=== PATIENT | female | born 2000 | race Caucasian/White ===

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

== ENCOUNTER 2018-03-19 18:04 | Emergency (ER) | payer OTHER, SELFPAY ==
[2018-03-19 18:25] VITALS: BP 98/61; PULSE 76; RESP 16; TEMP 36.8; O2SAT 100; BMI 22.4
--- NOTE | 2018-03-19 18:42 | DI.US.S_ITS ---
PROCEDURE: US OB <= 14 WEEKS FETUS INDICATIONS: First trimester bleeding OUTSIDE/PRIOR DATING DATA: Last menstrual period (LMP): 01/31/18. LMP-based estimated date of delivery (MAR): 11/07/18. First dating scan (date and location): This study, 03/19/18. Estimated date of delivery (MAR) from first dating scan: 11/13/18+ or -5 days. TECHNIQUE: Real-time scanning was performed of the fetus and maternal pelvic organs, with image documentation. Endovaginal scanning was also performed to better visualize the fetus and maternal ovaries. COMPARISON: None. FINDINGS: Embryo: Early IUP is present, heart rate 106 beats per minute, crown-rump length 3 mm, which correlates with a gestational age of 5 weeks 6 days, plus or -5 days. Measurement variability in dating: +/- 4 weeks by LMP, +/- 7 days by mean sac diameter (use before 6 weeks gestation if crown-rump length not able to be measured), +/- 5 days by crown-rump length (up to 8 weeks 6 days gestation), +/- 7 days by crown-rump length (up to 13 weeks 6 days gestation). Maternal organs: Ovaries normal considering gestational status. Limited images through the kidneys demonstrate no hydronephrosis. IMPRESSION: Single living intrauterine gestation, with crown-rump length of 3 mm correlating with a gestational age of 5 weeks 6 days and delivery date would be projected to be centered on 11/13/18, plus or -5 days. Followup anatomic survey at 21 weeks gestation is recommended. Dictated by: Anselmo Kathleen M.D. on 03/19/2018 at 19:59 Approved by: Anselmo Kathleen M.D. on 03/19/2018 at 20:01
--- NOTE | 2018-03-19 19:02 | ED.PREGNANCY ---
HPI - <REGGIE Thomas - Last Filed: 03/19/18 22:02> General Chief complaint: Vaginal Bleeding Stated complaint: 6 AND HALF WEEKS SPOTTING Time Seen by Provider: 03/19/18 18:42 Source: patient Mode of arrival: ambulatory Limitations: no limitations History of Present Illness HPI Narrative: 17-year-old female who is approximately 6 weeks here for complaint of vaginal spotting over the past couple of days. She denies any cramping. She denies any abdominal trauma. No abnormal vaginal discharge. She denies any urinary symptoms. No abdominal pain. She is 1. She does not know her blood type. She denies any for flank pain. No other concerns or complaints at this time MD Complaint: vaginal bleeding Date of Last Menstrual Period: 01/31/18 Patient : Yes Related Data Home Medications Medication Instructions Recorded Confirmed [humira] #0 04/07/17 Previous Rx's Medication Instructions Recorded pantoprazole [Protonix] 40 mg PO QDAY #30 tab 04/22/17 ferrous sulfate [Iron (ferrous 325 mg PO BID #60 tab 06/21/17 sulfate)] ferrous sulfate [Iron (ferrous 325 mg PO QDAY #30 tab 06/21/17 sulfate)] levofloxacin [Levaquin] 750 mg PO QDAY #7 tab 06/21/17 levofloxacin [Levaquin] 750 mg PO QDAY #7 tab 06/21/17 Allergies Allergy/AdvReac Type Severity Reaction Status Date / Time ibuprofen [IBUPROFEN] Allergy Unknown Gastrointestinal Verified 03/19/18 18:29 Upset Review of Systems <REGGIE Thomas - Last Filed: 03/19/18 22:02> Constitutional Denies chills, Denies fever(s), Denies lethargy and Denies weakness Eyes Denies change in vision, Denies eye discharge, Denies irritation and Denies loss of vision ENT Ears, Nose, Mouth, and Throat: Denies change in voice, Denies neck pain and Denies sore throat Cardiovascular Denies chest pain, Denies irregular heart rhythm, Denies lightheadedness, Denies palpitations, Denies dyspnea, Denies dyspnea on exertion and Denies orthopnea Respiratory Denies cough, Denies dyspnea, Denies dyspnea on exertion and Denies wheezing Gastrointestinal Gastrointestinal: Denies abdominal pain, Denies change in bowel habits, Denies diarrhea, Denies nausea and Denies vomiting Genitourinary Comments: Vaginal spotting Musculoskeletal Denies neck pain Integumentary/Breasts Denies pruritus, Denies erythema, Denies rash and Denies wounds Neurologic Denies confusion, Denies loss of vision and Denies weakness Psychiatric Denies anxiety, Denies confusion, Denies depression, Denies homicidal ideation and Denies suicidal ideation Endocrine Denies palpitations Hematologic/Lymphatic Denies easy bruising Allergic/Immunologic Denies wheezing PMFSH - <REGGIE Thomas - Last Filed: 03/19/18 22:02> Past Medical History Medical history: Reports no medical history Surgical history: Reports no surgical history FOREST ECONOMIST history: Reports No FOREST ECONOMIST History Date of Last Menstrual Period: 01/31/18 Patient : Yes Exam <REGGIE Thomas - Last Filed: 03/19/18 22:02> Initial Vital Signs Initial Vital Signs: Vital Signs Temperature 98.3 F 03/19/18 18:25 Pulse Rate 76 03/19/18 18:25 Respiratory Rate 16 03/19/18 18:25 Blood Pressure 98/61 03/19/18 18:25 Pulse Oximetry 100 03/19/18 18:25 Const General: cooperative and well developed Nutritional Appearance: well nourished Orientation: alert, awake, oriented x3 and not confused HENAR Mouth: oral mucosae normal, oropharynx normal and moist mucous membranes Eyes Conjunctivae: conjunctivae normal Sclera: sclerae normal Pupils: PERRL EOM: EOM intact bilaterally Resp Effort & Inspection: normal respiratory effort, able to speak in complete sentences, no respiratory distress and no use of accessory muscles Auscultation: clear to auscultation bilaterally, no rales, no rhonchi and no wheezes Cardio Rate: regular rate Rhythm: regular rhythm Heart Sounds: no click, no gallops, no murmurs and no rubs Pulses: normal peripheral pulses GI Inspection: non-distended Palpation: soft, no hepatosplenomegaly, No guarding, No pulsatile mass and No tender Auscultation: normal bowel sounds General: No CVA tenderness Skin General: no rashes or lesions noted, No jaundice and No petechiae Neuro General: alert, oriented x3, gait normal and no focal motor deficits Speech: speech normal <Iasías Bedoya DO - Last Filed: 03/20/18 03:50> Initial Vital Signs Initial Vital Signs: Vital Signs Temperature 98.3 F 03/19/18 18:25 Pulse Rate 76 03/19/18 18:25 Respiratory Rate 16 03/19/18 18:25 Blood Pressure 98/61 03/19/18 18:25 Pulse Oximetry 100 03/19/18 18:25 Course <REGGIE Thomas - Last Filed: 03/19/18 22:02> Orders Ordered: ED Orders 03/19/18 19:55 ABO RH Type Stat Complete Blood Count AUTO DIFF Stat Comprehensive Metabolic Panel Stat HCG Quantitative Stat Discontinued Medications Ondansetron HCl (Zofran Odt) 4 mg PO NOW ONE Stop: 03/19/18 19:49 Vital Signs - 8 hr 03/19/18 21:37 Pulse Rate 61 Respiratory Rate 16 Blood Pressure [Right Arm] 97/62 Pulse Oximetry 100 <Isaías Bedoya DO - Last Filed: 03/20/18 03:50> Orders Ordered: ED Orders 03/19/18 19:55 ABO RH Type Stat Complete Blood Count AUTO DIFF Stat Comprehensive Metabolic Panel Stat HCG Quantitative Stat Discontinued Medications Ondansetron HCl (Zofran Odt) 4 mg PO NOW ONE Stop: 03/19/18 19:49 Vital Signs - 8 hr 03/19/18 21:37 Pulse Rate 61 Respiratory Rate 16 Blood Pressure [Right Arm] 97/62 Pulse Oximetry 100 MDM - OB/Uterine Contractions <REGGIE Thomas - Last Filed: 03/19/18 22:02> Lab Data Result diagrams: 03/19/18 19:55 03/19/18 19:55 Lab Results 03/19/18 03/19/18 03/19/18 Range/Units 19:55 19:55 19:55 WBC 10.7 (4.5-11.0) X10^3/uL RBC 4.31 (4.0-5.2) X10^6/uL Hgb 10.8 L (12.0-16.0) g/dL Hct 33.3 L (36-46) % MCV 77.3 L (80-100) fL MCH 25.0 L (26-34) PG MCHC 32.3 (30-36) % RDW 16.1 H (11.6-14.8) % Plt Count 448 H (150-400) X10^3/uL Neut % (Auto) 61.8 (50-75) % Lymph % (Auto) 22.7 L (25-40) % [place] % (Auto) 8.2 (3-14) % Eos % (Auto) 6.5 H (2-4) % Baso % (Auto) 0.8 (0-2) % Neut # (Auto) 6600 H (4510-1712) /uL Sodium 138 (137-145) mmol/L Potassium 3.7 (3.4-5.1) mmol/L Chloride 104 (98-107) mmol/L Carbon Dioxide 26 (22-32) mmol/L BUN 10 (7-17) mg/dL Creatinine 0.60 (0.52-1.04) mg/dL Estimated GFR > 60.0 (>60) mL/min BUN/Creatinine Ratio 16.7 (6-22) Glucose 103 H (70-100) mg/dL Calcium 8.9 (8.4-10.2) mg/dL Total Bilirubin 0.2 (0.2-1.3) mg/dL AST 15 (14-36) IU/L ALT 17 (9-52) IU/L Alkaline Phosphatase 52 (38-126) U/L Total Protein 6.9 (6.3-8.2) g/dL Albumin 4.0 (3.5-5.0) g/dL Globulin 2.9 (1.7-4.1) g/dL Albumin/Globulin Ratio 1.4 (1.0-2.8) HCG, Quant 01041 mIU/mL Blood Type B Positive Imaging Data ob us: Radiologist's impression: PROCEDURE: US OB <= 14 WEEKS FETUS INDICATIONS: First trimester bleeding OUTSIDE/PRIOR DATING DATA: Last menstrual period (LMP): 01/31/18. LMP-based estimated date of delivery (MAR): 11/07/18. First dating scan (date and location): This study, 03/19/18. Estimated date of delivery (MAR) from first dating scan: 11/13/18+ or -5 days. TECHNIQUE: Real-time scanning was performed of the fetus and maternal pelvic organs, with image documentation. Endovaginal scanning was also performed to better visualize the fetus and maternal ovaries. COMPARISON: None. FINDINGS: Embryo: Early IUP is present, heart rate 106 beats per minute, crown-rump length 3 mm, which correlates with a gestational age of 5 weeks 6 days, plus or -5 days. Measurement variability in dating: +/- 4 weeks by LMP, +/- 7 days by mean sac diameter (use before 6 weeks gestation if crown-rump length not able to be measured), +/- 5 days by crown-rump length (up to 8 weeks 6 days gestation), +/- 7 days by crown-rump length (up to 13 weeks 6 days gestation). Maternal organs: Ovaries normal considering gestational status. Limited images through the kidneys demonstrate no hydronephrosis. IMPRESSION: Single living intrauterine gestation, with crown-rump length of 3 mm correlating with a gestational age of 5 weeks 6 days and delivery date would be projected to be centered on 11/13/18, plus or -5 days. Followup anatomic survey at 21 weeks gestation is recommended. Dictated by: Anselmo Kathleen M.D. on 03/19/2018 at 19:59 Approved by: Anselmo Kathleen M.D. on 03/19/2018 at 20:01 MDM Narrative Medical decision making narrative: Ob ultrasound was obtained and shows a intrauterine with viable heart rate at 5 weeks 6 days of age. No abnormal findings of the are seen. CBC was obtained and shows slight anemia however is consistent with her prior lab values. Chem panel was obtained was unremarkable. Urinalysis was negative for urinary tract infection. HCG quant was obtained and shows that she is at 50 K. her blood type is B positive. She is referred to OB for further evaluation. Follow up towards the end of the week for further evaluation. [id number] Tylenol as needed for any discomfort. For any worsening symptoms return to the emergency room. <Isaías Bedoya DO - Last Filed: 03/20/18 03:50> Lab Data Lab Results 03/19/18 03/19/18 03/19/18 Range/Units 19:55 19:55 19:55 WBC 10.7 (4.5-11.0) X10^3/uL RBC 4.31 (4.0-5.2) X10^6/uL Hgb 10.8 L (12.0-16.0) g/dL Hct 33.3 L (36-46) % MCV 77.3 L (80-100) fL MCH 25.0 L (26-34) PG MCHC 32.3 (30-36) % RDW 16.1 H (11.6-14.8) % Plt Count 448 H (150-400) X10^3/uL Neut % (Auto) 61.8 (50-75) % Lymph % (Auto) 22.7 L (25-40) % [place] % (Auto) 8.2 (3-14) % Eos % (Auto) 6.5 H (2-4) % Baso % (Auto) 0.8 (0-2) % Neut # (Auto) 6600 H (7564-0963) /uL Sodium 138 (137-145) mmol/L Potassium 3.7 (3.4-5.1) mmol/L Chloride 104 (98-107) mmol/L Carbon Dioxide 26 (22-32) mmol/L BUN 10 (7-17) mg/dL Creatinine 0.60 (0.52-1.04) mg/dL Estimated GFR > 60.0 (>60) mL/min BUN/Creatinine Ratio 16.7 (6-22) Glucose 103 H (70-100) mg/dL Calcium 8.9 (8.4-10.2) mg/dL Total Bilirubin 0.2 (0.2-1.3) mg/dL AST 15 (14-36) IU/L ALT 17 (9-52) IU/L Alkaline Phosphatase 52 (38-126) U/L Total Protein 6.9 (6.3-8.2) g/dL Albumin 4.0 (3.5-5.0) g/dL Globulin 2.9 (1.7-4.1) g/dL Albumin/Globulin Ratio 1.4 (1.0-2.8) HCG, Quant 39530 mIU/mL Blood Type B Positive Discharge Plan Departure Patient Disposition: Home Clinical Impression: Vaginal bleeding before 22 weeks gestation Discharge Date/Time: 03/19/18 21:42 Interventions: ED Discharge Assessment Last Done: 03/19/18 21:42 Instructions: DI for Vaginal Bleeding During Activity Restrictions/Additional Instructions: Ultrasound shows approximately 5 weeks and 6 days intrauterine with healthy heart rate. Laboratory results were normal. Follow up with OB later this week for re-evaluation. Use Tylenol as needed for any discomfort. For any worsening symptoms return to the emergency room. Call number at Ob below to schedule follow-up appointment Prescriptions: No Action [humira] Qty: 0 RF: 0 pantoprazole [Protonix] 40 MG tablet,delayed release (DR/EC) 40 mg PO QDAY Qty: 30 RF: 0 levofloxacin [Levaquin] 750 MG tablet 750 mg PO QDAY Qty: 7 RF: 0 ferrous sulfate [Iron (ferrous sulfate)] 325 MG tablet 325 mg PO BID Qty: 60 RF: 0 ferrous sulfate [Iron (ferrous sulfate)] 325 MG tablet 325 mg PO QDAY Qty: 30 RF: 0 levofloxacin [Levaquin] 750 MG tablet 750 mg PO QDAY Qty: 7 RF: 0 Referrals: Elizabeth Yin MD [Physician] - <Isaías Bedoya DO - Last Filed: 03/20/18 03:50> Cosign ED Attending Maria Luisa Attestation: I was immediately available in the department for consultation. Documentation has been reviewed. I agree with assessment and plan.
--- NOTE | 2018-03-19 19:33 | PC.NURSE ---
Chaperoned Jonatan frank with endovaginal study.
[2018-03-19 20:08] LABS: Add Manual Diff / Slide Review NO; Basophils Percent Auto 0.8 % (0-2); Eosinophils Percent Auto 6.5 % (2-4); Hematocrit 33.3 % (36-46); Hemoglobin 10.8 g/dL (12.0-16.0); Lymphocytes Percent Auto 22.7 % (25-40); Mean Corpuscular HGB Conc 32.3 % (30-36); Mean Corpuscular Volume 77.3 fL (80-100); Monocytes Percent Auto 8.2 % (3-14); Neutrophils Absolute Auto 6600 /uL (3000-5900); Neutrophils Percent Auto 61.8 % (50-75); Platelet Count 448 X10^3/uL (150-400); Red Blood Cell Count 4.31 X10^6/uL (4.0-5.2); Red Cell Distribution Width 16.1 % (11.6-14.8); White Blood Cell Count 10.7 X10^3/uL (4.5-11.0)
[2018-03-19 20:18] LABS: Alanine Aminotransferase 17 IU/L (9-52); Albumin Globulin Ratio 1.4 (1.0-2.8); Alkaline Phosphatase 52 U/L (38-126); Aspartate Aminotransferase 15 IU/L (14-36); BUN Creatinine Ratio 16.7 (6-22); Bilirubin Total 0.2 mg/dL (0.2-1.3); Blood Urea Nitrogen 10 mg/dL (7-17); Calcium 8.9 mg/dL (8.4-10.2); Carbon Dioxide 26 mmol/L (22-32); Chloride 104 mmol/L (98-107); Estimated Glomerular Filt Rate > 60.0 mL/min (>60); Globulin 2.9 g/dL (1.7-4.1); Glucose 103 mg/dL (70-100); HEMOLYSIS < 15 (0-50); Potassium 3.7 mmol/L (3.4-5.1); Sodium 138 mmol/L (137-145); Total Protein 6.9 g/dL (6.3-8.2)
[2018-03-19 20:59] LABS: HCG Quantitative /Beta subunit 50800 mIU/mL
--- NOTE | 2018-03-19 21:20 | ED_ITS ---
HPI - <REGGIE Thomas - Last Filed: 03/19/18 22:02> General Chief complaint: Vaginal Bleeding Stated complaint: 6 AND HALF WEEKS SPOTTING Time Seen by Provider: 03/19/18 18:42 Source: patient Mode of arrival: ambulatory Limitations: no limitations History of Present Illness HPI Narrative: 17-year-old female who is approximately 6 weeks here for complaint of vaginal spotting over the past couple of days. She denies any cramping. She denies any abdominal trauma. No abnormal vaginal discharge. She denies any urinary symptoms. No abdominal pain. She is 1. She does not know her blood type. She denies any for flank pain. No other concerns or complaints at this time MD Complaint: vaginal bleeding Date of Last Menstrual Period: 01/31/18 Patient : Yes Related Data Home Medications Medication Instructions Recorded Confirmed [humira] #0 04/07/17 Previous Rx's Medication Instructions Recorded pantoprazole [Protonix] 40 mg PO QDAY #30 tab 04/22/17 ferrous sulfate [Iron (ferrous 325 mg PO BID #60 tab 06/21/17 sulfate)] ferrous sulfate [Iron (ferrous 325 mg PO QDAY #30 tab 06/21/17 sulfate)] levofloxacin [Levaquin] 750 mg PO QDAY #7 tab 06/21/17 levofloxacin [Levaquin] 750 mg PO QDAY #7 tab 06/21/17 Allergies Allergy/AdvReac Type Severity Reaction Status Date / Time ibuprofen [IBUPROFEN] Allergy Unknown Gastrointestinal Verified 03/19/18 18:29 Upset Review of Systems <REGGIE Thomas - Last Filed: 03/19/18 22:02> Constitutional Denies chills, Denies fever(s), Denies lethargy and Denies weakness Eyes Denies change in vision, Denies eye discharge, Denies irritation and Denies loss of vision ENT Ears, Nose, Mouth, and Throat: Denies change in voice, Denies neck pain and Denies sore throat Cardiovascular Denies chest pain, Denies irregular heart rhythm, Denies lightheadedness, Denies palpitations, Denies dyspnea, Denies dyspnea on exertion and Denies orthopnea Respiratory Denies cough, Denies dyspnea, Denies dyspnea on exertion and Denies wheezing Gastrointestinal Gastrointestinal: Denies abdominal pain, Denies change in bowel habits, Denies diarrhea, Denies nausea and Denies vomiting Genitourinary Comments: Vaginal spotting Musculoskeletal Denies neck pain Integumentary/Breasts Denies pruritus, Denies erythema, Denies rash and Denies wounds Neurologic Denies confusion, Denies loss of vision and Denies weakness Psychiatric Denies anxiety, Denies confusion, Denies depression, Denies homicidal ideation and Denies suicidal ideation Endocrine Denies palpitations Hematologic/Lymphatic Denies easy bruising Allergic/Immunologic Denies wheezing PMFSH - <REGGIE Thomas - Last Filed: 03/19/18 22:02> Past Medical History Medical history: Reports no medical history Surgical history: Reports no surgical history LEGAL JOB TITLES history: Reports No LEGAL JOB TITLES History Date of Last Menstrual Period: 01/31/18 Patient : Yes Exam <REGGIE Thomas - Last Filed: 03/19/18 22:02> Initial Vital Signs Initial Vital Signs: Vital Signs Temperature 98.3 F 03/19/18 18:25 Pulse Rate 76 03/19/18 18:25 Respiratory Rate 16 03/19/18 18:25 Blood Pressure 98/61 03/19/18 18:25 Pulse Oximetry 100 03/19/18 18:25 Const General: cooperative and well developed Nutritional Appearance: well nourished Orientation: alert, awake, oriented x3 and not confused HENTX Mouth: oral mucosae normal, oropharynx normal and moist mucous membranes Eyes Conjunctivae: conjunctivae normal Sclera: sclerae normal Pupils: PERRL EOM: EOM intact bilaterally Resp Effort & Inspection: normal respiratory effort, able to speak in complete sentences, no respiratory distress and no use of accessory muscles Auscultation: clear to auscultation bilaterally, no rales, no rhonchi and no wheezes Cardio Rate: regular rate Rhythm: regular rhythm Heart Sounds: no click, no gallops, no murmurs and no rubs Pulses: normal peripheral pulses GI Inspection: non-distended Palpation: soft, no hepatosplenomegaly, No guarding, No pulsatile mass and No tender Auscultation: normal bowel sounds General: No CVA tenderness Skin General: no rashes or lesions noted, No jaundice and No petechiae Neuro General: alert, oriented x3, gait normal and no focal motor deficits Speech: speech normal <Isaías Bedoya DO - Last Filed: 03/20/18 03:50> Initial Vital Signs Initial Vital Signs: Vital Signs Temperature 98.3 F 03/19/18 18:25 Pulse Rate 76 03/19/18 18:25 Respiratory Rate 16 03/19/18 18:25 Blood Pressure 98/61 03/19/18 18:25 Pulse Oximetry 100 03/19/18 18:25 Course <REGGIE Thomas - Last Filed: 03/19/18 22:02> Orders Ordered: ED Orders 03/19/18 19:55 ABO RH Type Stat Complete Blood Count AUTO DIFF Stat Comprehensive Metabolic Panel Stat HCG Quantitative Stat Discontinued Medications Ondansetron HCl (Zofran Odt) 4 mg PO NOW ONE Stop: 03/19/18 19:49 Vital Signs - 8 hr 03/19/18 21:37 Pulse Rate 61 Respiratory Rate 16 Blood Pressure [Right Arm] 97/62 Pulse Oximetry 100 <Isaías Bedoya DO - Last Filed: 03/20/18 03:50> Orders Ordered: ED Orders 03/19/18 19:55 ABO RH Type Stat Complete Blood Count AUTO DIFF Stat Comprehensive Metabolic Panel Stat HCG Quantitative Stat Discontinued Medications Ondansetron HCl (Zofran Odt) 4 mg PO NOW ONE Stop: 03/19/18 19:49 Vital Signs - 8 hr 03/19/18 21:37 Pulse Rate 61 Respiratory Rate 16 Blood Pressure [Right Arm] 97/62 Pulse Oximetry 100 MDM - OB/Uterine Contractions <REGGIE Thomas - Last Filed: 03/19/18 22:02> Lab Data Result diagrams: 03/19/18 19:55 03/19/18 19:55 Lab Results 03/19/18 03/19/18 03/19/18 Range/Units 19:55 19:55 19:55 WBC 10.7 (4.5-11.0) X10^3/uL RBC 4.31 (4.0-5.2) X10^6/uL Hgb 10.8 L (12.0-16.0) g/dL Hct 33.3 L (36-46) % MCV 77.3 L (80-100) fL MCH 25.0 L (26-34) PG MCHC 32.3 (30-36) % RDW 16.1 H (11.6-14.8) % Plt Count 448 H (150-400) X10^3/uL Neut % (Auto) 61.8 (50-75) % Lymph % (Auto) 22.7 L (25-40) % [place] % (Auto) 8.2 (3-14) % Eos % (Auto) 6.5 H (2-4) % Baso % (Auto) 0.8 (0-2) % Neut # (Auto) 6600 H (2709-2350) /uL Sodium 138 (137-145) mmol/L Potassium 3.7 (3.4-5.1) mmol/L Chloride 104 (98-107) mmol/L Carbon Dioxide 26 (22-32) mmol/L BUN 10 (7-17) mg/dL Creatinine 0.60 (0.52-1.04) mg/dL Estimated GFR > 60.0 (>60) mL/min BUN/Creatinine Ratio 16.7 (6-22) Glucose 103 H (70-100) mg/dL Calcium 8.9 (8.4-10.2) mg/dL Total Bilirubin 0.2 (0.2-1.3) mg/dL AST 15 (14-36) IU/L ALT 17 (9-52) IU/L Alkaline Phosphatase 52 (38-126) U/L Total Protein 6.9 (6.3-8.2) g/dL Albumin 4.0 (3.5-5.0) g/dL Globulin 2.9 (1.7-4.1) g/dL Albumin/Globulin Ratio 1.4 (1.0-2.8) HCG, Quant 05385 mIU/mL Blood Type B Positive Imaging Data ob us: Radiologist's impression: PROCEDURE: US OB <= 14 WEEKS FETUS INDICATIONS: First trimester bleeding OUTSIDE/PRIOR DATING DATA: Last menstrual period (LMP): 01/31/18. LMP-based estimated date of delivery (MAR): 11/07/18. First dating scan (date and location): This study, 03/19/18. Estimated date of delivery (MAR) from first dating scan: 11/13/18+ or -5 days. TECHNIQUE: Real-time scanning was performed of the fetus and maternal pelvic organs, with image documentation. Endovaginal scanning was also performed to better visualize the fetus and maternal ovaries. COMPARISON: None. FINDINGS: Embryo: Early IUP is present, heart rate 106 beats per minute, crown-rump length 3 mm, which correlates with a gestational age of 5 weeks 6 days, plus or -5 days. Measurement variability in dating: +/- 4 weeks by LMP, +/- 7 days by mean sac diameter (use before 6 weeks gestation if crown-rump length not able to be measured), +/ - 5 days by crown-rump length (up to 8 weeks 6 days gestation), +/- 7 days by crown-rump length (up to 13 weeks 6 days gestation). Maternal organs: Ovaries normal considering gestational status. Limited images through the kidneys demonstrate no hydronephrosis. IMPRESSION: Single living intrauterine gestation, with crown-rump length of 3 mm correlating with a gestational age of 5 weeks 6 days and delivery date would be projected to be centered on 11/13/18, plus or -5 days. Followup anatomic survey at 21 weeks gestation is recommended. Dictated by: Anselmo Kathleen M.D. on 03/19/2018 at 19:59 Approved by: Anselmo Kathleen M.D. on 03/19/2018 at 20:01 MDM Narrative Medical decision making narrative: Ob ultrasound was obtained and shows a intrauterine with viable heart rate at 5 weeks 6 days of age. No abnormal findings of the are seen. CBC was obtained and shows slight anemia however is consistent with her prior lab values. Chem panel was obtained was unremarkable. Urinalysis was negative for urinary tract infection. HCG quant was obtained and shows that she is at 50 K. her blood type is B positive. She is referred to OB for further evaluation. Follow up towards the end of the week for further evaluation. [id number] Tylenol as needed for any discomfort. For any worsening symptoms return to the emergency room. <Isaías Bedoya DO - Last Filed: 03/20/18 03:50> Lab Data Lab Results 03/19/18 03/19/18 03/19/18 Range/Units 19:55 19:55 19:55 WBC 10.7 (4.5-11.0) X10^3/uL RBC 4.31 (4.0-5.2) X10^6/uL Hgb 10.8 L (12.0-16.0) g/dL Hct 33.3 L (36-46) % MCV 77.3 L (80-100) fL MCH 25.0 L (26-34) PG MCHC 32.3 (30-36) % RDW 16.1 H (11.6-14.8) % Plt Count 448 H (150-400) X10^3/uL Neut % (Auto) 61.8 (50-75) % Lymph % (Auto) 22.7 L (25-40) % [place] % (Auto) 8.2 (3-14) % Eos % (Auto) 6.5 H (2-4) % Baso % (Auto) 0.8 (0-2) % Neut # (Auto) 6600 H (8918-2154) /uL Sodium 138 (137-145) mmol/L Potassium 3.7 (3.4-5.1) mmol/L Chloride 104 (98-107) mmol/L Carbon Dioxide 26 (22-32) mmol/L BUN 10 (7-17) mg/dL Creatinine 0.60 (0.52-1.04) mg/dL Estimated GFR > 60.0 (>60) mL/min BUN/Creatinine Ratio 16.7 (6-22) Glucose 103 H (70-100) mg/dL Calcium 8.9 (8.4-10.2) mg/dL Total Bilirubin 0.2 (0.2-1.3) mg/dL AST 15 (14-36) IU/L ALT 17 (9-52) IU/L Alkaline Phosphatase 52 (38-126) U/L Total Protein 6.9 (6.3-8.2) g/dL Albumin 4.0 (3.5-5.0) g/dL Globulin 2.9 (1.7-4.1) g/dL Albumin/Globulin Ratio 1.4 (1.0-2.8) HCG, Quant 10036 mIU/mL Blood Type B Positive Discharge Plan Departure Patient Disposition: Home Clinical Impression: Vaginal bleeding before 22 weeks gestation Discharge Date/Time: 03/19/18 21:42 Interventions: ED Discharge Assessment Last Done: 03/19/18 21:42 Instructions: DI for Vaginal Bleeding During Activity Restrictions/Additional Instructions: Ultrasound shows approximately 5 weeks and 6 days intrauterine with healthy heart rate. Laboratory results were normal. Follow up with OB later this week for re-evaluation. Use Tylenol as needed for any discomfort. For any worsening symptoms return to the emergency room. Call number at Ob below to schedule follow-up appointment Prescriptions: No Action [humira] Qty: 0 RF: 0 pantoprazole [Protonix] 40 MG tablet,delayed release (DR/EC) 40 mg PO QDAY Qty: 30 RF: 0 levofloxacin [Levaquin] 750 MG tablet 750 mg PO QDAY Qty: 7 RF: 0 ferrous sulfate [Iron (ferrous sulfate)] 325 MG tablet 325 mg PO BID Qty: 60 RF: 0 ferrous sulfate [Iron (ferrous sulfate)] 325 MG tablet 325 mg PO QDAY Qty: 30 RF: 0 levofloxacin [Levaquin] 750 MG tablet 750 mg PO QDAY Qty: 7 RF: 0 Referrals: Elizabeth Yin MD [Physician] - <Isaías Bedoya DO - Last Filed: 03/20/18 03:50> Cosign ED Attending Maria Luisa Attestation: I was immediately available in the department for consultation. Documentation has been reviewed. I agree with assessment and plan.
[2018-03-19 21:37] VITALS: BP 97/62; PULSE 61; RESP 16; O2SAT 100
== END 2018-03-19 21:42 | disposition home or self-care (01) ==
PROVIDERS: Emergency Provider Nurse Practitioner Family
DX: O20.9 Hemorrhage in early pregnancy, unspecified (principal); Z3A.01 Less than 8 weeks gestation of pregnancy
CPT/HCPCS: 36415; 76801; 76817; 80053; 81003; 81025; 84702; 85025; 86900; 86901; 99282; 99284

== ENCOUNTER 2018-09-05 21:15 | Emergency (ER) | payer OTHER, SELFPAY ==
[2018-09-05 21:20] VITALS: PULSE 102; RESP 14; TEMP 36.4; O2SAT 99; BMI 24.1
[2018-09-05 21:26] VITALS: BP 105/64; PULSE 102; RESP 14; TEMP 36.4; O2SAT 99
[2018-09-05] MEDS: SODIUM CHLORIDE 0.9% 1,000 ML 1000 ML IV ×2 (21:55→23:28)
[2018-09-05 22:00] VITALS: BP 90/63; PULSE 95; RESP 15; O2SAT 100
[2018-09-05] MEDS: ONDANSETRON 4 MG/2 ML INJ IV (22:09)
[2018-09-05 22:14] LABS: Hematocrit 25.2 % (36-46); Hemoglobin 8.1 g/dL (12.0-16.0); Mean Corpuscular HGB Conc 32.2 % (30-36); Mean Corpuscular Hemoglobin 25.4 PG (26-34); Platelet Count 373 X10^3/uL (150-400); Red Blood Cell Count 3.19 X10^6/uL (4.0-5.2); Red Cell Distribution Width 15.3 % (11.6-14.8); White Blood Cell Count 11.9 X10^3/uL (4.5-11.0)
[2018-09-05 22:18] LABS: Alanine Aminotransferase 10 IU/L (9-52); Albumin 3.6 g/dL (3.5-5.0); Alkaline Phosphatase 161 U/L (38-126); Aspartate Aminotransferase 19 IU/L (14-36); BUN Creatinine Ratio 8.8 (6-22); Bilirubin Total 0.2 mg/dL (0.2-1.3); Blood Urea Nitrogen 7 mg/dL (7-17); Calcium 8.7 mg/dL (8.4-10.2); Carbon Dioxide 25 mmol/L (22-32); Chloride 103 mmol/L (98-107); Estimated Glomerular Filt Rate > 60.0 mL/min (>60); Globulin 3.7 g/dL (1.7-4.1); Glucose 99 mg/dL (70-100); HEMOLYSIS < 15 (0-50); Potassium 3.4 mmol/L (3.4-5.1); Sodium 136 mmol/L (137-145); Total Protein 7.3 g/dL (6.3-8.2)
[2018-09-05 22:19] LABS: RBC Urine None Seen (0-5/HPF)
--- NOTE | 2018-09-05 22:22 | ED.ABDPAIN ---
HPI - Abdominal Pain General Chief Complaint: Abdominal Pain Stated Complaint: ULCERS ARE FLARING UP Time Seen by Provider: 09/05/18 21:24 Source: patient Mode of arrival: ambulatory Limitations: no limitations History of Present Illness HPI narrative: Patient is a 17-year-old female who is currently 31 presenting with abdominal discomfort. She also has ulcerative colitis she feels like her stool has become mucousy. She feels like baby is not moving as much. She is drinking a lot of water but still feels a little light headed. She denies any fever or chills. She had a some diffuse abdominal discomfort no localization. She denies any nausea vomiting. MD complaint: abdominal pain Pain Consistency: intermittent Quality: cramping Related Data Home Medications Medication Instructions Recorded Confirmed [humira] #0 04/07/17 Previous Rx's Medication Instructions Recorded pantoprazole [Protonix] 40 mg PO QDAY #30 tab 04/22/17 ferrous sulfate [Iron (ferrous 325 mg PO BID #60 tab 06/21/17 sulfate)] ferrous sulfate [Iron (ferrous 325 mg PO QDAY #30 tab 06/21/17 sulfate)] levofloxacin [Levaquin] 750 mg PO QDAY #7 tab 06/21/17 levofloxacin [Levaquin] 750 mg PO QDAY #7 tab 06/21/17 amoxicillin-pot clavulanate 1 tab PO Q12H #14 tab 09/06/18 Allergies Allergy/AdvReac Type Severity Reaction Status Date / Time ibuprofen [IBUPROFEN] Allergy Unknown Gastrointestinal Verified 03/19/18 18:29 Upset Review of Systems Review of Systems ROS Unobtainable: All systems reviewed & are unremarkable except as noted in HPI and below Constitutional Denies chills, Denies fever(s), Denies lethargy and Denies weakness Cardiovascular Reports lightheadedness, Denies dyspnea and Denies dyspnea on exertion Respiratory Denies cough, Denies dyspnea, Denies dyspnea on exertion and Denies wheezing Gastrointestinal Gastrointestinal: Reports abdominal pain, Reports cramping and Reports diarrhea (History ulcerative colitis sometimes mucousy nonbloody) Genitourinary Comments: 31 week Musculoskeletal Denies back pain, Denies muscle weakness, Denies numbness and Denies tingling Integumentary/Breasts Denies pruritus, Denies erythema, Denies rash and Denies wounds Neurologic Denies numbness, Denies tingling and Denies weakness Allergic/Immunologic Denies wheezing [facility] Social History Smoking Status: Never smoker Social History Smoking Status: Never smoker Comment: Exam Initial Vital Signs Initial Vital Signs: Vital Signs Temperature 97.6 F 09/05/18 21:20 Pulse Rate 102 H 09/05/18 21:20 Respiratory Rate 14 09/05/18 21:20 Pulse Oximetry 99 09/05/18 21:20 GENERAL: Thin young female no acute distress HEENT: Head atraumatic,EOMI, pupils reactive CARDIOVASCULAR: Regular rate and rhythm without murmurs, rubs or gallops. RESPIRATORY: Breath sounds equal bilaterally, no wheezes rales or rhonchi. ABDOMEN: Soft, gravid, nontender : No CVA tenderness EXTREMITIES: Normal range of motion, no clubbing or edema. Neurovascularly intact NEUROLOGICAL: Alert and oriented x4.Normal gait and speech. Cranial nerves II through XII grossly intact. SKIN: Warm, dry, no laceration, no petechiae, no rashes or lesions. Course Orders Ordered: ED Orders 09/05/18 21:54 CBC manual diff [Complete Blood Count MAN DIFF] Stat CMP [Comprehensive Metabolic Panel] Stat 09/05/18 22:00 Urine Culture Stat Urine Microscopic Stat 09/05/18 22:23 US OB limited Stat Discontinued Medications Acetaminophen (Tylenol) 975 mg PO NOW ONE Stop: 09/05/18 23:20 Last Admin: 09/05/18 23:28 Dose: 975 mg Sodium Chloride (Normal Saline 0.9%) 1,000 mls @ 1,000 mls/hr IV BOLUS ONE Stop: 09/05/18 23:05 Last Infusion: 09/05/18 22:57 Dose: 1,000 mls/hr Admin: 09/05/18 21:55 Dose: 1,000 mls/hr Ampicillin Sodium/Sulbactam (Sodium 3 gm/ Sodium Chloride) 100 mls @ 100 mls/hr IV NOW ONE Stop: 09/05/18 23:20 Last Infusion: 09/06/18 00:57 Dose: 0 mls/hr Admin: 09/06/18 00:02 Dose: 100 mls/hr Sodium Chloride (Normal Saline 0.9%) 1,000 mls @ 1,000 mls/hr IV BOLUS ONE Stop: 09/06/18 00:18 Last Infusion: 09/06/18 00:43 Dose: 1,000 mls/hr Admin: 09/05/18 23:28 Dose: 1,000 mls/hr Ondansetron HCl (Zofran) 4 mg IV NOW ONE Stop: 09/05/18 22:06 Last Admin: 09/05/18 22:09 Dose: 4 mg Vital Signs - 8 hr 09/05/18 21:20 09/05/18 21:26 09/05/18 22:00 Temperature 97.6 F 97.6 F Pulse Rate 102 H 102 H 95 H Respiratory Rate 14 14 15 Blood Pressure Blood Pressure [Left Arm] 105/64 90/63 Pulse Oximetry 99 99 100 09/05/18 23:01 09/06/18 00:58 Temperature Pulse Rate 90 96 H Respiratory Rate 20 14 Blood Pressure 95/53 L Blood Pressure [Left Arm] 100/60 Pulse Oximetry 99 99 MDM - Abdominal Pain Lab Data Attestation: I reviewed the patient's lab results. Result diagrams: 09/05/18 21:54 09/05/18 21:54 Lab Results 09/05/18 09/05/18 09/05/18 Range/Units 21:54 21:54 22:00 WBC 11.9 H (4.5-11.0) X10^3/uL RBC 3.19 L (4.0-5.2) X10^6/uL Hgb 8.1 L (12.0-16.0) g/dL Hct 25.2 L (36-46) % MCV 79.0 L (80-100) fL MCH 25.4 L (26-34) PG MCHC 32.2 (30-36) % RDW 15.3 H (11.6-14.8) % Plt Count 373 (150-400) X10^3/uL Total Counted 100 Seg Neutrophils % 34.0 L (37-67) % Band Neutrophils % 25.0 H (3-7) % Lymphocytes % (Manual) 17.0 L (25-45) % Monocytes % (Manual) 4.0 (2-11) % Eosinophils % (Manual) 20.0 H (2-4) % Neutrophils # (Manual) 7021 H (9743-7592) /uL RBC Morphology See below Polychromasia 1+ H Hypochromasia 1+ H Anisocytosis 2+ H Sodium 136 L (137-145) mmol/L Potassium 3.4 (3.4-5.1) mmol/L Chloride 103 (98-107) mmol/L Carbon Dioxide 25 (22-32) mmol/L BUN 7 (7-17) mg/dL Creatinine 0.80 (0.52-1.04) mg/dL Estimated GFR > 60.0 (>60) mL/min BUN/Creatinine Ratio 8.8 (6-22) Glucose 99 (70-100) mg/dL Calcium 8.7 (8.4-10.2) mg/dL Total Bilirubin 0.2 (0.2-1.3) mg/dL AST 19 (14-36) IU/L ALT 10 (9-52) IU/L Alkaline Phosphatase 161 H (38-126) U/L Total Protein 7.3 (6.3-8.2) g/dL Albumin 3.6 (3.5-5.0) g/dL Globulin 3.7 (1.7-4.1) g/dL Albumin/Globulin Ratio 1.0 (1.0-2.8) Urine RBC None seen (0-5/HPF) Urine WBC 1-5/hpf (0-5/HPF) Ur Squamous Epith Cells 1-5 /hpf Urine Bacteria Moderate (10-30) H (None) Ur Culture Indicated? Specimen cultured Point of care testing: Point of Care Testing Test Results Positive Urine Dip Bedside Urine Glucose Negative Bedside Urine Bilirubin - Negative Bedside Urine Ketone - Negative Urine Specific [place] 1.01 Bedside Urine Occult Blood - Negative Bedside Urine pH 6.0 Bedside Urine Protein - Negative Bedside Urine Urobilinogen - Negative Bedside Urine Nitrite - Negative Bedside Urine Leukocytes + 70 Esterase Imaging Data US OB greater than 14 weeks: Radiologist's impression: Single live uterine with cardiac activity 121. Normal amniotic fluid volume and motion observed. Maternal severe right hydronephrosis MDM Narrative Medical decision making narrative: The patient is feeling much better after 2 L of IV fluids. She is given a dose of Unasyn. She is ambulatory to the restroom multiple times without any dizziness or lightheadedness. She is anemic previously before her she had hemoglobin of 6. I recommended her to follow up with her OB. Discharge Plan Departure Patient Disposition: Home Clinical Impression: UTI (urinary tract infection) during Qualifiers: Trimester: third trimester Qualified Code(s): O23.43 - Unspecified infection of urinary tract in , third trimester Anemia Qualifiers: Anemia type: unspecified type Qualified Code(s): D64.9 - Anemia, unspecified Discharge Date/Time: 09/06/18 00:58 Interventions: ED Discharge Assessment Last Done: 09/06/18 00:58 Instructions: DI for Urinary Tract Infection (UTI) Activity Restrictions/Additional Instructions: *You have been diagnosed with bladder infection and anemia *What to do: Increase fluid intake, hemoglobin today is 8.1, hematocrit is 25.2, this blood work needs to be recheck with her OB at this time you do not require blood transfusion. Continue with your vitamins. *Continue to take medications as directed Augmentin 875 mg twice a day for 7 days *Follow up with your primary care provider in 2-3 days, follow up with her OB, call tomorrow to schedule appointment *Return to ER if you should have dizziness lightheadedness, increased abdominal pain, or any new, worsening or concerning symptoms Prescriptions: New amoxicillin-pot clavulanate 875-125 mg tablet 1 tab PO Q12H Qty: 14 RF: 0 No Action [humira] Qty: 0 RF: 0 pantoprazole [Protonix] 40 MG tablet,delayed release (DR/EC) 40 mg PO QDAY Qty: 30 RF: 0 levofloxacin [Levaquin] 750 MG tablet 750 mg PO QDAY Qty: 7 RF: 0 ferrous sulfate [Iron (ferrous sulfate)] 325 MG tablet 325 mg PO BID Qty: 60 RF: 0 ferrous sulfate [Iron (ferrous sulfate)] 325 MG tablet 325 mg PO QDAY Qty: 30 RF: 0 levofloxacin [Levaquin] 750 MG tablet 750 mg PO QDAY Qty: 7 RF: 0
--- NOTE | 2018-09-05 22:23 | DI.US.S_ITS ---
PROCEDURE: US OB LIMITED INDICATIONS: DECREASED MOVEMENT OUTSIDE/PRIOR DATING DATA: Last menstrual period (LMP): 01/31/18. LMP-based estimated date of delivery (MAR): 11/07/18. First dating scan (date and location): 03/19/18. Estimated date of delivery (MAR) from first dating scan: 11/13/18. TECHNIQUE: Real-time scanning was performed of the fetus, with image documentation. Endovaginal scanning: Informed COMPARISON: [facility], OB <= 14 WEEKS FETUS, 03/19/2018, 19:24. FINDINGS: A single living intrauterine gestation is present. Active motion noted during the examination. Presentation: Vertex Placenta: Placental position is anterior, without previa. Amniotic fluid index: 13.5 cm, normal range is 5-24 cm. heart rate: 121 beats per minute. Maternal cervical canal: 3.0 cm long. Normal lower limit is 2.5 cm. Estimated gestational age from initial scan: 30 weeks one day. Moderate to severe right-sided maternal hydronephrosis is noted. IMPRESSION: 1. Single living intrauterine fetus. Active motion identified during the study. 2. Moderate to severe right-sided maternal hydronephrosis. Dictated by: Em Coronado MD, PhD on 09/06/2018 at 7:51 Approved by: Em Coronado MD, PhD on 09/06/2018 at 7:53
[2018-09-05 22:35] LABS: WBC Urine 1-5/HPF (0-5/HPF)
[2018-09-05 22:36] LABS: Bacteria Urine Moderate (10-30); Culture Indicated Urine Specimen Cultured; Squamous Epithelial Cell Urine 1-5 /HPF
[2018-09-05 22:46] LABS: Neutrophils Absolute Manual 7021 /uL (3000-5900); Total Cells Counted 100
[2018-09-05 22:47] LABS: Anisocytosis 2+; Hypochromasia 1+; Polychromasia 1+
[2018-09-05 23:01] VITALS: BP 100/60; PULSE 90; RESP 20; O2SAT 99
[2018-09-05] MEDS: ACETAMINOPHEN 325 MG TABLET 975 MG PO (23:28)
[2018-09-06] MEDS: AMPICILLIN/SULBACTAM 3 GM 3 GM in SODIUM CHLORIDE 0.9% 100 ML IV (00:02)
[2018-09-06 00:58] VITALS: BP 95/53; PULSE 96; RESP 14; O2SAT 99
== END 2018-09-06 00:58 | disposition home or self-care (01) ==
PROVIDERS: Emergency Provider Emergency Medicine
DX: O23.43 Unspecified infection of urinary tract in pregnancy, third trimester (principal); Z3A.31 31 weeks gestation of pregnancy
CPT/HCPCS: 36591; 76815; 80053; 81003; 81015; 81025; 85025; 87086; 96361; 96374; 96375; 99283; 99284; J0295; J2405